=== PATIENT | male | born 1995 | race Caucasian/White ===

== ENCOUNTER 2018-05-20 21:04 | Inpatient (IN) | payer BC, OTHER ==
[~2018-05-20] VITALS: Ht 175.3 cm; Wt 61.7 kg
[~2018-05-20 21:04] MED LIST: MIRT15TA3
--- NOTE | 2018-05-20 21:11 | NUR ---
PT BIBSELF COMPLAINING OF LOWER ABDOMINAL PAIN, RADIATING TO RIGHT SIDE X1 DAY. PT ALSO C/O NAUSEA, DENIES VOMITTING, DIARRHEA, CHEST PAIN, SOB. PT AAOX4. RESPIRATIONS EVEN AND UNLABORED. VITAL SIGNS STABLE. NO ACUTE DISTRESS NOTED AT THIS TIME. PT AMBULATORY WITH STEADY GAIT TO ER BED 3. WILL CONTINUE TO MONITOR
[2018-05-20] MEDS ORDERED: IV NS 0.9% 1,000 ML BAG IV ONE (21:30)
--- NOTE | 2018-05-20 21:40 | NUR ---
SCENE PAINTER AT BEDSIDE FOR BLOOD DRAW
--- NOTE | 2018-05-20 21:40 | NUR ---
UNABLE TO PROVIDE URINE SAMPLE AT THIS TIME, MD LARSEN
[2018-05-20 21:44] LABS: BASOPHILS % (AUTO) 0.5 % (0.0-2.0); EOSINOPHILS % (AUTO) 1.9 % (0.0-6.0); HEMATOCRIT 45 % (39-51); HEMOGLOBIN 15.7 g/dL (13.5-17.5); LYMPHOCYTES # (AUTO) 1.8 /CMM (0.8-4.8); MEAN CORPUSCULAR HGB CONC 35 g/dl (31.0-36.0); MEAN CORPUSCULAR VOLUME 92 fL (80-96); MONOCYTES # (AUTO) 0.8 /CMM (0.1-1.30); MONOCYTES % (AUTO) 10.4 % (2.0-12.0); NEUTROPHILS % (AUTO) 64.2 % (43.0-81.0); PLATELET COUNT (AUTO) 217 /CMM (150-450); RED BLOOD CELL COUNT(AUTO) 4.95 MIL/uL (4.5-6.0); WHITE BLOOD COUNT (AUTO) 7.7 K/uL (4.3-11.0)
[2018-05-20] MEDS ORDERED: IV NS 0.9% 250 ML IV ONE (21:47)
[2018-05-20] MEDS ORDERED: IOHEXOL-300 100 ML VIAL IV ONE ×2 (21:47→22:28)
[2018-05-20 21:52] LABS: CALCIUM, SERUM 9.4 mg/dL (8.5-10.1); POTASSIUM 3.5 mmol/L (3.5-5.1)
[2018-05-20 22:03] LABS: ALBUMIN 4.1 g/dL (3.4-5.0); BILIRUBIN,DIRECT 0.1 mg/dL (0.0-0.2); BILIRUBIN,TOTAL 0.6 mg/dL (0.2-1.0); TOTAL PROTEIN, SERUM 7.6 g/dL (6.4-8.2)
--- NOTE | 2018-05-20 22:10 | NUR ---
RADIOLOGY AT BEDSIDE FOR CT
--- NOTE | 2018-05-20 22:48 | NUR ---
PT RETURNED FROM CT
--- NOTE | 2018-05-20 23:00 | NUR ---
URINE COLLECTED AND SENT TO LAB
[2018-05-20 23:52] LABS: APPEARANCE,URINE SL CLOUDY (CLEAR); BILIRUBIN,URINE NEGATIVE (NEGATIVE); BLOOD, URINE NEGATIVE Ery/uL (NEGATIVE); COLOR,URINE YELLOW (YELLOW); KETONES,URINE NEGATIVE (NEGATIVE); LEUKOCYTE ESTERASE ,URINE NEGATIVE (NEGATIVE); NITRITE, URINE NEGATIVE (NEGATIVE); PROTEIN,URINE NEGATIVE (NEGATIVE); UGLUCOSE NEGATIVE (NEGATIVE); UROBILINOGEN,URINE 0.2 EU/dL (0.2)
[2018-05-21] VITALS (11 sets, daily range): BP systolic 121–129; BP diastolic 60–98
[2018-05-21] MEDS ORDERED: PIPERACILLIN /TAZOBACTAM 3.375 G in IV D5W 50 ML IV ONE ×2
[2018-05-21] MEDS ORDERED: PIPERACILLIN /TAZOBACTAM 3.375 G VIAL IV ONE (00:22)
[2018-05-21] MEDS ORDERED: FLUO20CA36 PO (00:49)
[2018-05-21] MEDS ORDERED: MIRT30TA7 PO (00:49)
[2018-05-21] MEDS ORDERED: BUPR300T52 PO (00:49)
--- NOTE | 2018-05-21 01:00 | NUR ---
GAVE REPORT TO CARLITO FERREIRA FOR IVELISSE
--- NOTE | 2018-05-21 01:15 | NUR ---
PT TRANSFERRED TO CT BED 314-1 VIA [facility]
--- NOTE | 2018-05-21 01:25 | NUR ---
MS/RN NOTES RECEIVED PT. FROM ER VIA [facility]. PT. IS AWAKE, ALERT AND ORIENTED X4. BREATHING EVEN AND UNLABORED ON ROOM AIR. NO SOB, RESPIRATORY DISTRESS OR COMPLAINTS OF PAIN NOTED AT THIS TIME. NO COMPLAINTS OF NAUSEA, VOMITING OR ABDOMINAL PAIN NOTED AT THIS TIME. ORIENTED PT. TO ROOM. PT. WITH LEFT AC 18 GAUGE IV SALINE LOCK PRESENT, PATENT AND INTACT. BED LOCKED AND IN LOWEST POSITION, SIDE RAILS UP X2, CALL LIGHT WITHIN REACH, AWAITING ADMITTING ORDERS. WILL CONTINUE TO MONITOR.
[2018-05-21] MEDS ORDERED: ZOLPIDEM TARTRATE 5 MG TABLET PO PRN (02:30)
[2018-05-21] MEDS ORDERED: MORPHINE SULFATE INJ 2 MG/ML DISP.SYRIN IV PRN ×2 (02:30→19:30)
[2018-05-21] MEDS ORDERED: ACETAMINOPHEN 325 MG TABLET PO PRN (02:30)
[2018-05-21] MEDS: IV NS 0.9% 1,000 ML IV PRN (02:30)
[2018-05-21] MEDS ORDERED: ONDANSETRON HCL/PF 4 MG/2 ML VIAL IVP PRN (02:30)
[2018-05-21] MEDS ORDERED: Z GUARD REMEDY 2 OZ OINT TP PRN (02:30)
[2018-05-21] MEDS ORDERED: PIPERACILLIN /TAZOBACTAM 4.5 G in IV D5W 50 ML IV SCH (06:00)
--- NOTE | 2018-05-21 06:15 | NUR ---
MS/RN NOTES PT. IS LYING IN BED, AWAKE, ALERT AND ORIENTED X4. BREATHING EVEN AND UNLABORED ON ROOM AIR. NO SOB, RESPIRATORY DISTRESS OR COMPLAINTS OF PAIN NOTED AT THIS TIME. PT. WITH LEFT AC 18 GAUGE PERIPHERAL IV PRESENT, PATENT AND INTACT ADMINISTERING TO PT. NS @ 75 ML/HR. ALL PT. NEEDS MET. PT. REMAINS NPO AT THIS TIME. BED LOCKED AND IN LOWEST POSITION, SIDE RAILS UP X2, CALL LIGHT WITHIN REACH, WILL ENDORSE TO DAYSHIFT NURSE FOR CONTINUITY OF CARE.
--- NOTE | 2018-05-21 07:31 | NUR ---
RN NOTES PATIENT A/OX4, NO SOB NOTED, DENIES PAIN AT THIS TIME, PIV ON LAC G18 PATENT AND INFUSING WELL. NEEDS ATTENDED, CALL LIGHT WITHIN REACH, WILL CONTINUE TO MONITOR.
[2018-05-21] MEDS: PIPERACILLIN /TAZOBACTAM 3.375 G in IV D5W 100 ML IV SCH ×2 (09:08→16:45)
--- NOTE | 2018-05-21 13:00 | NUR ---
RN NOTES INFORMED DR. LANDIS PATIENT AND MOTHER WANTS TO SPEAK TO HIM PRIOR TO SURGERY. PER MD, HE WILL MEET THEM IN PRE-OP AREA. PATIENT AND MOTHER MADE AWARE.
[2018-05-21] MEDS ORDERED: LIDOCAINE HCL/PF 1% 30 ML SDV ONE (13:17)
[2018-05-21] MEDS ORDERED: ANESTHESIA TRAY IN PYXIS 1 EA TRAY MC ONE (13:17)
[2018-05-21] MEDS ORDERED: BUPIVACAINE MPF 0.5% W/EPI INJ 30 ML VIAL ONE (13:17)
[2018-05-21] MEDS ORDERED: HYDROMORPHONE INJ 2 MG/ML DISP.SYRIN IV PRN ×4 (13:30→20:00)
[2018-05-21] MEDS ORDERED: HYDROMORPHONE INJ 0.5 MG/0.5 ML SYRINGE IV PRN (13:30)
--- NOTE | 2018-05-21 13:35 | NUR ---
RN NOTES PATIENT TRANSFERRED TO OR IN STABLE CONDITION.
[2018-05-21] MEDS ORDERED: MIDAZOLAM HCL 2 MG/2ML VIAL ONE (14:11)
[2018-05-21] MEDS ORDERED: LANOLIN/MIN OIL/PETROLAT,WHT 3.5 GM TUBE ONE (14:22)
[2018-05-21] MEDS ORDERED: KETOROLAC TROMETHAMINE INJ 30 MG/ML VIAL ONE (15:48)
--- NOTE | 2018-05-21 16:00 | NUR ---
RN NOTES PATIENT CAME BACK FROM OR DEPT. PATIENT IN STABLE CONDITION. VSS. NAD. C/O PAIN 06/30. PATIENT'S MOM UPSET, ASKED TO SPEAK WITH NURSING CANDLE EXTRUSION MACHINE OPERATOR OR CRIMINOLOGY TEACHER. MOTHER EARLE ASSISTED TO NURSING CANDLE EXTRUSION MACHINE OPERATOR'S OFFICE, AND SPOKE WITH LARISSA AND TACOS ABRAMS FROM ADMITTING DEPT. NEEDS ATTENDED, CALL LIGHT WITHIN REACH, WILL CONTINUE TO MONITOR.
[2018-05-21] MEDS ORDERED: IV LR 1000 ML 1,000 ML IV PRN (17:30)
[2018-05-21] MEDS ORDERED: DULCOLAX 10 MG/SUPP.RECT RC PRN (17:30)
[2018-05-21] MEDS ORDERED: COLACE 250 MG CAPSULE PO PRN (17:30)
[2018-05-21] MEDS ORDERED: AMBIEN 5 MG TABLET PO PRN (17:30)
[2018-05-21] MEDS ORDERED: HYDROCODONE/APAP 5/325MG 1 EACH TABLET PO PRN (17:30)
--- NOTE | 2018-05-21 18:21 | NUR ---
RN NOTES PATIENT TOLERATED CLEAR LIQUIDS FOR DINNER. DENIES ABDOMINAL PAIN AND NAUSEA/VOMITING AT THIS TIME. PATIENT REQUESTED FOR MORE JELLOS AND JUICES. PATIENT'S ABDOMINAL INCISIONS WITH NO S/SX OF BLEEDING AT THIS TIME. INCENTIVE SPIROMETER GIVEN TO THE PATIENT AND INSTRUCTED ON HOW TO USE. IVF INFUSING AND TOLERATING WELL. ALL NEEDS ATTENDED AND MET, CALL LIGHT WITHIN REACH, WILL ENDORSE TO MARBLE MECHANIC HELPER FOR IVELISSE.
--- NOTE | 2018-05-21 19:10 | NUR ---
MS/RN NOTES RECEIVED PT. SITTING UP IN BED. PT. IS AWAKE, ALERT AND ORIENTED X4. BREATHING EVEN AND UNLABORED ON ROOM AIR. NO SOB, RESPIRATORY DISTRESS OR COMPLAINTS OF PAIN NOTED AT THIS TIME. NO COMPLAINTS OF NAUSEA, VOMITING OR ABDOMINAL PAIN NOTED AT THIS TIME. PT. WITH LEFT AC 18 GAUGE PERIPHERAL IV PRESENT, PATENT AND INTACT ADMINISTERING TO PT. LR @ 100 ML/HR. PT. IS STATUS POST LAP APPY TODAY WITH DR. LANDIS. PT. WITH 3 ABDOMINAL SURGICAL INCISIONS WITH NO BLEEDING OR DRAINAGE NOTED AT THIS TIME. BED LOCKED AND IN LOWEST POSITION, SIDE RAILS UP X2, CALL LIGHT WITHIN REACH, WILL CONTINUE TO MONITOR.
[2018-05-21] MEDS: POLYETHYLENE GLYCOL 3350 17 GM POWD.PACK PO SCH (20:30)
[2018-05-22] MEDS: PIPERACILLIN /TAZOBACTAM 3.375 G in IV D5W 100 ML IV SCH ×3 (00:42→16:48)
--- NOTE | 2018-05-22 06:22 | NUR ---
MS/RN NOTES PT. IS LYING IN BED RESTING. BREATHING EVEN AND UNLABORED ON ROOM AIR. NO SOB, RESPIRATORY DISTRESS OR COMPLAINTS OF PAIN NOTED AT THIS TIME. PT. WITH LEFT AC 18 GAUGE PERIPHERAL IV PRESENT, PATENT AND INTACT ADMINISTERING TO PT. LR @ 100 ML/HR. ALL PT. NEEDS MET. BED LOCKED AND IN LOWEST POSITION, SIDE RAILS UP X2, CALL LIGHT WITHIN REACH, WILL ENDORSE TO DAYSHIFT NURSE FOR CONTINUITY OF CARE.
[2018-05-22 07:11] LABS: BASOPHILS % (AUTO) 0.2 % (0.0-2.0); EOSINOPHILS % (AUTO) 0.5 % (0.0-6.0); HEMATOCRIT 38 % (39-51); HEMOGLOBIN 13.3 g/dL (13.5-17.5); LYMPHOCYTES # (AUTO) 1.7 /CMM (0.8-4.8); LYMPHOCYTES % (AUTO) 16.9 % (20.0-44.0); MEAN CORPUSCULAR HGB CONC 35 g/dl (31.0-36.0); MEAN CORPUSCULAR VOLUME 91 fL (80-96); MONOCYTES # (AUTO) 1.1 /CMM (0.1-1.30); MONOCYTES % (AUTO) 11.3 % (2.0-12.0); NEUTROPHILS % (AUTO) 71.1 % (43.0-81.0); PLATELET COUNT (AUTO) 187 /CMM (150-450); RED BLOOD CELL COUNT(AUTO) 4.16 MIL/uL (4.5-6.0); WHITE BLOOD COUNT (AUTO) 9.9 K/uL (4.3-11.0)
--- NOTE | 2018-05-22 07:33 | NUR ---
MS/RN - Assessment Patient is A/O X 4, denies pain at this time, no respiratory distress noted, POD#1 Lap Appy under the care of Dr. Jamison. Patient did well post-operatively. IVF NS at 75 ml/hr infusing well on the LAC with no signs of infiltration. Fall precautions maintained, able to ambulate with steady gait. All needs attended and met. Will continue with current medical management.
[2018-05-22] MEDS: IV NS 0.9% 1,000 ML IV PRN (07:40)
[2018-05-22 07:41] LABS: CALCIUM, SERUM 8.8 mg/dL (8.5-10.1); POTASSIUM 3.5 mmol/L (3.5-5.1)
[2018-05-22 07:42] LABS: ALBUMIN 3.4 g/dL (3.4-5.0); BILIRUBIN,TOTAL 1.1 mg/dL (0.2-1.0); MAGNESIUM 1.9 mg/dL (1.8-2.4); PHOSPHORUS 4.5 mg/dL (2.5-4.9); TOTAL PROTEIN, SERUM 6.3 g/dL (6.4-8.2)
[2018-05-22 08:00] VITALS: BP 110/60
[2018-05-22] MEDS: HYDROCODONE/APAP 10/325MG 1 EA TABLET PO PRN (13:04)
[2018-05-22] MEDS: DOCUSATE SODIUM 250 MG CAPSULE PO SCH (15:19)
[2018-05-22] MEDS: SIMETHICONE 80 MG TAB.CHEW PO SCH (15:20)
[2018-05-22] MEDS: TRAMADOL HCL 50 MG TABLET PO SCH ×2 (15:20→22:50)
[2018-05-22] MEDS: FAMOTIDINE (20 MG) 20 MG TABLET PO SCH ×2 (15:20→21:39)
[2018-05-22 16:00] VITALS: BP 115/61
--- NOTE | 2018-05-22 18:16 | NUR ---
MS/RN - Closing notes Patient tolerated regular diet well, denies abdominal pain, no c/o n/v, remain afebrile, stable on room air. Patient and mother updated on plan of care. Will continue with current medical management.
--- NOTE | 2018-05-22 19:10 | NUR ---
MS/RN OPENING NOTES PT RECEIVED AWAKE, HOB ELEVATED. MOTHER AT BEDSIDE. ON ROOM AIR, BREATHING EVEN AND UNLABORED. DENIES PAIN, SOB, N/V. 4 ABDOMINAL INCISIONS CLEAN AND DRY. MAMADOU. NO BLEEDING OR DISCHARGE NOTED. POSITIVE FLATUS BUT NO BM YET. IV TO LAC PATENT AND INTACT. BED IN LOW/LOCKED POSITION WITH CALL LIGHT IN REACH. BILATERAL UPPER SIDE RAILS IN PLACE. WILL CONTINUE TO MONITOR.
[2018-05-22] MEDS ORDERED: FLUO10CA26 PO (19:57)
[2018-05-22 20:00] VITALS: BP 112/58
--- NOTE | 2018-05-22 20:15 | NUR ---
MS/RN NOTES MOTHER UPSET, STATES PT HASNT BEEN RECEIVING HIS HOME MEDS. NOTIFIED DR. ALVAREZ, ASKED TO RECONCILE HOME MEDS. WITH ORDERS FOR REMERON 30MG PO HS START TONIGHT. WILL REVIEW THE OTHER HOME MEDS.
[2018-05-22] MEDS: MIRTAZAPINE 15 MG TABLET PO SCH (21:39)
[2018-05-22] MEDS: POLYETHYLENE GLYCOL 3350 17 GM POWD.PACK PO SCH (21:41)
--- NOTE | 2018-05-22 22:00 | NUR ---
MS/RN NOTES PT AMBULATED ONCE AROUND THE UNIT. TOLERATED WELL
[2018-05-23] MEDS: PIPERACILLIN /TAZOBACTAM 3.375 G in IV D5W 100 ML IV SCH ×2 (00:28→08:15)
--- NOTE | 2018-05-23 01:00 | NUR ---
MS/RN NOTES DR. ALVAREZ REMINDED ABOUT MED RECON
[2018-05-23] MEDS: TRAMADOL HCL 50 MG TABLET PO SCH ×3 (06:36→22:03)
--- NOTE | 2018-05-23 06:49 | NUR ---
MS/RN CLOSING NOTES PT AWAKE, RESTING COMFORTABLY IN BED. ON ROOM AIR, BREATHING EVEN AND UNLABORED. ABDOMINAL PAIN /, SCHEDULED ULTRAM ADMINISTERED ORDERED. DENIES SOB AND N/V AT THIS TIME. HOB ELEVATED. NO BM DURING SHIFT, + FLATUS. 4 SURGICAL INCISIONS MAMADOU, NO BLEEDING OR DRAINAGE NOTED. ENCOURAGED PT TO AMBULATE TOLERATED AND USE INCENTIVE SPIROMETER Q1H WHILE AWAKE. IV TO LAC PATENT AND INTACT. SLEPT WELL DURING SHIFT. ALL NEEDS MET. BED REMAINS IN LOW/LOCKED POSITION WITH CALL LIGHT IN REACH. BILATERAL UPPER SIDE RAILS IN PLACE. WILL ENDORSE TO DAY SHIFT RN IVELISSE.
[2018-05-23 07:08] LABS: BASOPHILS % (AUTO) 0.5 % (0.0-2.0); EOSINOPHILS % (AUTO) 5.6 % (0.0-6.0); HEMATOCRIT 41 % (39-51); HEMOGLOBIN 14.3 g/dL (13.5-17.5); LYMPHOCYTES # (AUTO) 2.3 /CMM (0.8-4.8); LYMPHOCYTES % (AUTO) 34.8 % (20.0-44.0); MEAN CORPUSCULAR HGB CONC 35 g/dl (31.0-36.0); MEAN CORPUSCULAR VOLUME 90 fL (80-96); MONOCYTES # (AUTO) 0.7 /CMM (0.1-1.30); MONOCYTES % (AUTO) 10.7 % (2.0-12.0); NEUTROPHILS # (AUTO) 3.1 /CMM (1.8-8.9); NEUTROPHILS % (AUTO) 48.4 % (43.0-81.0); PLATELET COUNT (AUTO) 214 /CMM (150-450); RED BLOOD CELL COUNT(AUTO) 4.53 MIL/uL (4.5-6.0); WHITE BLOOD COUNT (AUTO) 6.5 K/uL (4.3-11.0)
[2018-05-23 07:22] LABS: CALCIUM, SERUM 9.2 mg/dL (8.5-10.1); CREATININE 1.1 mg/dL (0.6-1.3); MAGNESIUM 2.3 mg/dL (1.8-2.4); PHOSPHORUS 4.2 mg/dL (2.5-4.9); POTASSIUM 3.8 mmol/L (3.5-5.1)
[2018-05-23] MEDS: SIMETHICONE 80 MG TAB.CHEW PO SCH ×2 (07:56→18:02)
[2018-05-23] MEDS: DOCUSATE SODIUM 250 MG CAPSULE PO SCH ×2 (07:57→18:02)
[2018-05-23] MEDS: FAMOTIDINE (20 MG) 20 MG TABLET PO SCH ×2 (07:57→20:55)
[2018-05-23 08:00] VITALS: BP 121/74
--- NOTE | 2018-05-23 08:00 | NUR ---
ms rn received on bed, awake,alert,oriented x4,not in any form of distress, respirations even and unlabored,no sob noted,lungs are clear,abdomen soft,positive bowel sounds, denies pain at this time,all needs attended.
--- NOTE | 2018-05-23 09:00 | NUR ---
ms henriquez breakfast served,due meds given,tolerated well.
--- NOTE | 2018-05-23 10:00 | NUR ---
ms rn was seen by pt, walks around, tolerated well.
[2018-05-23] MEDS: Fluoxetine 10 mg capsule PO SCH (12:29)
[2018-05-23] MEDS: BUPROPION XL 150 MG TAB.ER.24 PO SCH (12:29)
[2018-05-23] MEDS: CEPHALEXIN MONOHYDRATE 500 MG CAPSULE PO SCH ×2 (12:29→20:55)
--- NOTE | 2018-05-23 14:00 | NUR ---
ms rn mom at bedside, been giving prune juice but not effective.
[2018-05-23 16:00] VITALS: BP 122/70
--- NOTE | 2018-05-23 16:27 | NUR ---
ms rn on bed, no distress noted, denies pain at this time,all needs attended.
--- NOTE | 2018-05-23 19:08 | NUR ---
MS RN OPENING NOTES Received patient A/O X4, sitting on bed with visitor at bedside. Patient denies any discomfort at this time. With patent peripheral LAC G#18, AL. S/P laparoscopic appendectomy day 2. Encouraged to do ambulation as tolerated. Call light at bedside. Will continue to monitor accordingly.
[2018-05-23 20:00] VITALS: BP 107/65
--- NOTE | 2018-05-23 21:30 | NUR ---
MS RN NOTES Patient noted ambulating in the hallways 3 rounds, accompanied by mother. Patient tolerated walking well. Patient back to bed. Mother left at this time.
[2018-05-23] MEDS: MIRTAZAPINE 15 MG TABLET PO SCH (21:35)
[2018-05-23] MEDS: POLYETHYLENE GLYCOL 3350 17 GM POWD.PACK PO SCH (21:35)
[2018-05-23] MEDS ORDERED: Medication Not On Formulary EA (Mirtazapine 30 MG) PO SCH (22:00)
[2018-05-24] MEDS: TRAMADOL HCL 50 MG TABLET PO SCH ×2 (06:06→14:48)
--- NOTE | 2018-05-24 06:47 | NUR ---
MS RN CLOSING NOTES Patient asleep on semi-Tijerina's position on bed. With patent peripheral IV line LAC G#18, SL. Patient denies any discomfort. Able to ambulate around the hallway last night, tolerated well. All needs attended. Due meds given as ordered, no ASE noted. Kept clean, dry and comfortable. Call light within easy reach. Endorsed to the next shift for IVELISSE.
--- NOTE | 2018-05-24 07:15 | NUR ---
MS RN OPENING NOTES RECEIVED PATIENT AWAKE IN BED IN NO ACUTE SIGNS OF DISTRESS. A/O X4. ABLE TO VERBALIZED NEEDS WITH NO C/O PAIN OR DISCOMFORTS VOICED AT THIS TIME. 4 SURGICAL INCISIONS ON ABDOMEN INTACT WITH NO ACTIVE BLEEDING NOTED. ON ROOM AIR, BREATHING EVEN AND UNLABORED. HEPLOCK ON LAC INTACT AND PATENT. SAFETY MEASURES IN PLACE. BED IN LOW/LOCKED POSITION WITH SR UP X2. CALL LIGHT IN REACH. WILL CONTINUE TO MONITOR PT ACCORDINGLY.
[2018-05-24 08:00] VITALS: BP 113/70
[2018-05-24] MEDS: DOCUSATE SODIUM 250 MG CAPSULE PO SCH (08:25)
[2018-05-24] MEDS: CEPHALEXIN MONOHYDRATE 500 MG CAPSULE PO SCH (08:25)
[2018-05-24] MEDS: FAMOTIDINE (20 MG) 20 MG TABLET PO SCH (08:25)
[2018-05-24] MEDS: SIMETHICONE 80 MG TAB.CHEW PO SCH (08:25)
[2018-05-24] MEDS: BUPROPION XL 150 MG TAB.ER.24 PO SCH (08:25)
[2018-05-24] MEDS: HYDROCODONE/APAP 10/325MG 1 EA TABLET PO PRN (08:28)
[2018-05-24] MEDS: Fluoxetine 10 mg capsule PO SCH (08:30)
--- NOTE | 2018-05-24 08:38 | NUR ---
RN NOTES/PAIN MANAGEMENT PATIENT C/O SHARP PAIN ON HIS RIGHT SHOULDER WITH SCALE OF 10/10, PRN NORCO 10/325 PO GIVEN @ 0828. WILL CONTINUE TO MONITOR AND ASSESS PT.
[2018-05-24 16:00] VITALS: BP 110/71
--- NOTE | 2018-05-24 17:25 | NUR ---
COMMUNITY LIAISON OFFICER NOTES PT DISCHARGED HOME IN STABLE CONDITION. A/O X4. AMBULATORY AND VERBALLY RESPONSIVE. ALL NEEDS AND CARE ATTENDED WELL. V/S TAKEN AND FRECORDED. 4 SURGICAL INCISIONS ON HIS ABDOMEN INTACT, PHOTO TAKEN THEN FILED ON CHART. PIV REMOVED WITH NO BLEEDING NOTED. NAME ARM BAND REMOVED. HEALT TEACHINGS GIVEN AND VERBALIZED UNDERSTANDING. PT LEFT UNIT AT 1655 VIA WHEELCHAIR ACCOMPANIED BY TANK CAR LOADER AND PT'S HIS MOTHER. MD AND CHARGE NURSE AWRE OF DISCHARGE.
== END 2018-05-24 17:00 | disposition home or self-care (01) | DRG 342 ==
LOC: ER 21:08 → MED 05-21 01:06
PROVIDERS: ADMIT Internal Medicine; ATTEND Internal Medicine
PROC: 0DTJ4ZZ Resection of Appendix, Percutaneous Endoscopic Approach (ICD-10-PCS; principal; 2018-05-21)
DX: K35.80 Unspecified acute appendicitis (principal); K56.7 Ileus, unspecified; F32.9 Major depressive disorder, single episode, unspecified; F41.9 Anxiety disorder, unspecified
CPT/HCPCS: 36415; 80048-TC; 80053-TC; 80061-TC; 80076-TC; 81000-TC; 83690-TC; 83735-TC; 84100-TC; 85025-TC; 86850-TC; 87081-TC; 87086-TC; 88304-TC; G0378; J1170; J1885; J2250; J2405; J2543; J2704; J2710; J3490; J7030; J7050; J7060; J7120; Q9967

== ENCOUNTER 2021-11-20 08:03 | Inpatient (IN) | payer BC ==
[~2021-11-20] VITALS: Ht 182.9 cm; Wt 59.9 kg
[~2021-11-20 08:03] MED LIST changes: +BUPR300T52 PO; +FLUO10CA26 PO; +MIRT-91 PO; -MIRT15TA3
--- NOTE | 2021-11-20 08:24 | NUR ---
BIBS FOR C/O PRESSURE LIKE CP RADIATING TO BACK AND JAW SINCE 644. RATES PAINS 3/10. ALSO, C/O N/V. TOOK IBUPROFEN 2 COLLECTIONS REP. THE PATIENT IS ALERT AND ORIENTED X4. IN ROOM AIR AND DENIES SOB. RESPIRATION REGULAR AND UNLABORED. THE PATIENT IS ATTACHED TO THE MONITOR. WILL CONTINUE TO MONITOR THE PATIENT.
--- NOTE | 2021-11-20 08:43 | NUR ---
IV LINE IS ESTABLISHED, BLOOD SPECIMEN COLLECTED AND SENT TO THE LAB. THE LINE IS SALINE LOCKED.
[2021-11-20 08:56] LABS: BASOPHILS % (AUTO) 0.1 % (0.0-2.0); EOSINOPHILS % (AUTO) 0.6 % (0.0-6.0); HEMATOCRIT 43 % (39-51); HEMOGLOBIN 14.8 g/dL (13.5-17.5); LYMPHOCYTES # (AUTO) 0.7 K/uL (0.8-4.8); LYMPHOCYTES % (AUTO) 7.5 % (20.0-44.0); MEAN CORPUSCULAR HGB CONC 34 g/dl (31.0-36.0); MEAN CORPUSCULAR VOLUME 91 fL (80-96); MONOCYTES # (AUTO) 1.1 K/uL (0.1-1.30); MONOCYTES % (AUTO) 12.7 % (2.0-12.0); NEUTROPHILS % (AUTO) 79.1 % (43.0-81.0); PLATELET COUNT (AUTO) 146 K/uL (150-450); RED BLOOD CELL COUNT(AUTO) 4.74 MIL/uL (4.5-6.0); WHITE BLOOD COUNT (AUTO) 8.8 K/uL (4.3-11.0)
[2021-11-20] MEDS ORDERED: ONDANSETRON 4 MG TAB.RAPDIS SL ONE (09:00)
[2021-11-20] MEDS ORDERED: ONDANSETRON 4 MG TAB.RAPDIS ONE (09:01)
--- NOTE | 2021-11-20 09:52 | NUR ---
LAB CALLED [facility] [phone] DR. ASHISH SALINAS.
--- NOTE | 2021-11-20 09:54 | NUR ---
COVID SWAB DONE SENT TO LAB
[2021-11-20 09:57] LABS: CALCIUM, SERUM 8.6 mg/dL (8.5-10.1); CARBON DIOXIDE 29 mmol/L (21-32); CHLORIDE 102 mmol/L (98-107); GLUCOSE 107 mg/dL (74-106); POTASSIUM 3.9 mmol/L (3.5-5.1); SODIUM SERUM 138 mmol/L (136-145); UREA NITROGEN, BLOOD 10 mg/dL (7-18)
[2021-11-20] MEDS ORDERED: ENOXAPARIN SODIUM 60 MG/0.6 ML DISP.SYRIN SQ ONE ×2 (10:00→10:05)
[2021-11-20] MEDS ORDERED: METOPROLOL TARTRATE INJ 5 MG/5 ML AMPUL IV ONE (10:00)
[2021-11-20] MEDS ORDERED: ASPIRIN 325 MG TABLET PO ONE (10:00)
[2021-11-20] MEDS ORDERED: ASPIRIN 325 MG TABLET ONE (10:05)
[2021-11-20] MEDS ORDERED: METOPROLOL TARTRATE INJ 5 MG/5 ML AMPUL ONE (10:05)
--- NOTE | 2021-11-20 10:05 | NUR ---
THE PATIENT IS TAKEN TO CT [facility]IA [facility]
--- NOTE | 2021-11-20 10:12 | NUR ---
THE PATIENT IS BACK FROM CT VIA [facility]
--- NOTE | 2021-11-20 10:28 | NUR ---
PT SEEN BY DR. RUIZ AT BEDSIDE
[2021-11-20] MEDS: ASPIRIN 81 MG TAB.CHEW PO SCH (10:30)
--- NOTE | 2021-11-20 11:04 | NUR ---
[facility] CALLED BUILDING SERVICES COORDINATOR PAGED.
[2021-11-20 11:12] LABS: THYROID STIMULATING HORMONE 0.178 uIU/mL (0.358-3.74)
--- NOTE | 2021-11-20 11:15 | NUR ---
RECEIVED ORDERS FROM DR JAQUEZ: MORPHINE 2 MG IV ONCE AND NITROSTAT 0.4 MG SL Q5 MIN X3 PRN. THE ORDERS ARE READ BACK, VERIFIED. NOTED AND CARRIED OUT.
[2021-11-20] MEDS ORDERED: NITROGLYCERIN 0.4 MG/TAB BOTTLE SL PRN (11:30)
[2021-11-20] MEDS ORDERED: MORPHINE SULFATE INJ 2 MG/ML DISP.SYRIN ONE ×2 (11:43→17:25)
[2021-11-20] MEDS ORDERED: NITROGLYCERIN 0.4 MG/TAB BOTTLE ONE (11:43)
[2021-11-20] MEDS: MORPHINE SULFATE INJ 2 MG/ML DISP.SYRIN IV PRN ×2 (11:49→21:38)
--- NOTE | 2021-11-20 12:35 | NUR ---
SECOND TROPONIN IS TROPONIN 4271. NO NEW ORDER PER DR JAQUEZ.
--- NOTE | 2021-11-20 12:41 | NUR ---
US TECH AT THE BEDSIDE
[2021-11-20] MEDS ORDERED: ASPIRIN 81 MG TAB.CHEW ONE (14:24)
[2021-11-20] MEDS ORDERED: ZOLPIDEM TARTRATE 5 MG TABLET PO PRN (14:30)
[2021-11-20] MEDS ORDERED: MAGNESIUM HYDROXIDE 30 ML UDC PO PRN (14:30)
[2021-11-20] MEDS ORDERED: Z GUARD REMEDY 4 OZ OINT TP PRN (14:30)
[2021-11-20] MEDS ORDERED: MAG HYDROX/AL HYDROX/SIMETH 30 ML UDC PO PRN (14:30)
[2021-11-20] MEDS ORDERED: ONDANSETRON HCL/PF 4 MG/2 ML VIAL IVP PRN (14:30)
[2021-11-20] MEDS ORDERED: ACETAMINOPHEN 325 MG TABLET PO PRN (14:30)
[2021-11-20] MEDS ORDERED: MORPHINE SULFATE INJ 2 MG/ML DISP.SYRIN IV PRN (14:30)
--- NOTE | 2021-11-20 15:51 | NUR ---
KAILEY RODRIGUEZ (MOTHER) [phone]
--- NOTE | 2021-11-20 17:06 | NUR ---
ROOM 111-1
--- NOTE | 2021-11-20 17:30 | NUR ---
REPORT GIVEN TO NURSE SANCHEZ FOR IVELISSE
[2021-11-20] MEDS ORDERED: METOPROLOL TARTRATE 25 MG TABLET ONE (17:52)
[2021-11-20] MEDS: METOPROLOL TARTRATE 25 MG TABLET PO SCH (17:59)
[2021-11-20 18:30] VITALS: BP 129/76
--- NOTE | 2021-11-20 18:38 | NUR ---
THE PATIENT IS TRANSFERED TO ROOM 111-1 IN STABLE CONDITION AND PER ACLS POLICY.
[2021-11-20 20:00] VITALS: BP 114/70
--- NOTE | 2021-11-20 20:57 | NUR ---
Metallurgical Technician Opening Note Pt received in bed, awake, watching TV, A&O x4, calm, cooperative. Pt on RA with current O2sat 99%; pt shows no s/s of resp distress, no SOB or cough, non-labored and equal breathing. Pt attached to external monitor SR with HR of 69; pt denies any chest pain at the moment but is complaining of jaw pain; will closely monitor for compalints of chest pain. IV access on LAC 20G, intact and patent; flushes easily with no resistance; currently has no meds/fluids running. Bed in lowest position, call light within reach, side rails up x2. Will continue to monitor throughout the night.
[2021-11-20] MEDS: ENOXAPARIN SODIUM 60 MG/0.6 ML DISP.SYRIN SQ SCH (21:25)
--- NOTE | 2021-11-20 21:38 | NUR ---
RN Note Pt complains of 8/10 jaw pain that's described as aching and throbbing. Pt requests for morphine. Pt administered morphine 2 mg. Will monitor for effectiveness.
[2021-11-21] VITALS (11 sets, daily range): BP systolic 84–113; BP diastolic 36–75
[2021-11-21] MEDS: METOPROLOL TARTRATE 25 MG TABLET PO SCH ×5 (00:53→23:28)
--- NOTE | 2021-11-21 06:06 | NUR ---
HL7 INTERFACE DEVELOPER CLOSING NOTE PT REMAINS IN BED, AWAKE, USING PHONE, A&O X4, SLEPT WELL LAST NIGHT. PT REMAINS ON RA WITH O2SAT RANGING FROM 96%-98%; NO S/S OF RESP DISTRESS, NON-LABORED AND EQUAL BREATHING, NO SOB OR COUGH. ATTACHED TO EXTERNAL MONITOR SR THROUGHOUT THE WHOLE NIGHT, HR RANGING FROM 69-90; PT HAD NO COMPLAINT OF CHEST PAIN DURING THE NIGHT AND REPORTS JAW PAIN DECREASED WHEN GIVEN MORPHINE. LAC 20G INTACT AND PATENT, FLUSHES EASILY WITH NO RESISTANCE; HAS NO FLUIDS/MEDS RUNNING THROUGH IT. BED IN LOWEST POSITION, CALL LIGHT WITHIN REACH, SIDE RAILS UP X2. WILL ENDORSE TO DAYSHIFT NURSE TO CONTINUE CARE.
[2021-11-21 06:28] LABS: BASOPHILS % (AUTO) 0.9 % (0.0-2.0); EOSINOPHILS % (AUTO) 1.7 % (0.0-6.0); HEMATOCRIT 43 % (39-51); HEMOGLOBIN 14.9 g/dL (13.5-17.5); LYMPHOCYTES # (AUTO) 1.1 K/uL (0.8-4.8); LYMPHOCYTES % (AUTO) 21.4 % (20.0-44.0); MEAN CORPUSCULAR HGB CONC 35 g/dl (31.0-36.0); MEAN CORPUSCULAR VOLUME 90 fL (80-96); MONOCYTES # (AUTO) 0.9 K/uL (0.1-1.30); MONOCYTES % (AUTO) 18.1 % (2.0-12.0); NEUTROPHILS # (AUTO) 2.9 K/uL (1.8-8.9); NEUTROPHILS % (AUTO) 57.9 % (43.0-81.0); PLATELET COUNT (AUTO) 146 K/uL (150-450); RED BLOOD CELL COUNT(AUTO) 4.75 MIL/uL (4.5-6.0)
[2021-11-21 07:17] LABS: ALBUMIN 3.5 g/dL (3.4-5.0); BILIRUBIN,TOTAL 0.7 mg/dL (0.2-1.0); CALCIUM, SERUM 8.3 mg/dL (8.5-10.1); MAGNESIUM 2.2 mg/dL (1.8-2.4); PHOSPHORUS 4.3 mg/dL (2.5-4.9); TOTAL PROTEIN, SERUM 6.6 g/dL (6.4-8.2)
--- NOTE | 2021-11-21 07:21 | NUR ---
RN OPENING NOTE PT IN BED, AWAKE, A&O X4, ON ROOPM NO S/S OF RESP DISTRESS, NON-LABORED AND EQUAL BREATHING, NO SOB OR COUGH. ATTACHED TO BLUEPRINT PROCESSOR PT DOES NOT COMPLAINT OF CHEST PAIN. LAC 20G INTACT AND PATENT, SAFETY MEASURES IN PLACE BED IN LOWEST POSITION, CALL LIGHT WITHIN REACH, SIDE RAILS UP X2.
[2021-11-21] MEDS ORDERED: IOHEXOL-350 100 ML VIAL IV ONE (08:39)
[2021-11-21] MEDS ORDERED: IV NS 0.9% 250 ML IV ONE (08:39)
[2021-11-21] MEDS ORDERED: METOPROLOL TARTRATE INJ 5 MG/5 ML AMPUL ONE (08:49)
--- NOTE | 2021-11-21 08:50 | NUR ---
ICU/RN/CTA PT IS AWAKE ALERT.ON CT TABLE.BP 102/52. HR-74.RR-18.SAT O2-99% ON ROOM AIR.NO PAIN REPORTED AT THIS TIME. RIGHT AC #20.METOPROLOL 5 MG IV GIVEN ORDERED.
--- NOTE | 2021-11-21 08:55 | NUR ---
ICU/RN/CTA BP DECREASED TO 87/45.HR -71 BPM. NO MORE MEDS ARE GIVEN .
--- NOTE | 2021-11-21 09:10 | NUR ---
ICU/RN/CTA CTA DONE . BP 99/58.HR-78 BPM.SAT O2-96% ON ROOM AIR.PT IS STABLE .NO PAIN REPORTED AT THIS TIME.OK TO TRANSFER BACK TO THE ROOM.REPORT GIVEN TO BRIDGETTE/HANNA
[2021-11-21] MEDS: ASPIRIN 81 MG TAB.CHEW PO SCH (09:29)
[2021-11-21] MEDS: ENOXAPARIN SODIUM 60 MG/0.6 ML DISP.SYRIN SQ SCH ×2 (09:54→20:54)
[2021-11-21 11:16] LABS: BAND % (MANUAL) 1 % (0.0-5.0); EOSINOPHILS % (MANUAL) 4 % (0-4); LYMPHOCYTES % (MANUAL) 20 % (16-48); MONOCYTES % (MANUAL) 23 % (0-11.0); NEUTROPHILS % (MANUAL) 52 (42-76)
--- NOTE | 2021-11-21 18:42 | NUR ---
DIRECTOR OF COMMUNITY CENTER CLOSING NOTE PT REMAINS IN BED, AWAKE, USING PHONE, A&O X4, SLEPT WELL LAST NIGHT. PT REMAINS ON RA WITH O2SAT RANGING FROM 96%-98%; NO S/S OF RESP DISTRESS, NON-LABORED AND EQUAL BREATHING, NO SOB OR COUGH. ATTACHED TO EXTERNAL MONITOR PT HAD NO COMPLAINT OF CHEST PAIN . LAC 20G INTACT AND PATENT, FLUSHES EASILY WITH NO RESISTANCE. BED IN LOWEST POSITION, CALL LIGHT WITHIN REACH, SIDE RAILS UP X2. WILL ENDORSE TO NIGHT NURSE TO CONTINUE CARE.
--- NOTE | 2021-11-21 19:50 | NUR ---
RN OPENING NOTE PT IN BED, AWAKE, A&O X4, ON ROOM AIR, NON-LABORED AND EQUAL BREATHING, NO SOB OR COUGH. ATTACHED TO FARM MACHINERY MECHANIC. NO PAIN NOTED AT THIS TIME, NO S/SX OF RESPIRATORY DISTRESS NOTED, PT FAMILY ON BEDSIDE. LAC 20G INTACT AND PATENT, SAFETY MEASURES IN PLACE, BED IN LOWEST POSITION, CALL LIGHT WITHIN REACH, SIDE RAILS UP X2. WILL CONTINUE TO MONITOR THROUGHOUT THE SHIFT.
--- NOTE | 2021-11-22 00:39 | NUR ---
RN NOTE PT NOTED WITH FEVER AT 100, TYLENOL GIVEN PRN MEDS AND COOLING MEASURES DONE. WILL CONT TO MONITOR.
--- NOTE | 2021-11-22 01:50 | NUR ---
RN NOTE TRANSFERRED PT TO [address] [place] [address] VIA HOSPITAL BED, ACLS PROTOCOL FOLLOWED DURING TRANSFER. REPORT GIVEN TO ROXANA FERREIRA.
--- NOTE | 2021-11-22 02:36 | NUR ---
WATER PUMP SERVICERACADEMIC COUNSELOR NOTES: RECEIVED PATIENT FROM [facility] ON STABLE CONDITION, PLACED IN BED COMFORTABLY, BED IN COMFORTABLY, PATIENT IS A/OX4 ABLE TO MAKE NEEDS KNOWN, AMBULATORY ON TELE MONITORING SR-76, V/S ARE WITHIN NORMAL RANGE, ORIENTED TO ROOM REMIND TO USE THE CALL LIGHTS WHEN NEEDED ASSISTANCE, SKIN IS INTACT, INVENTORY DONE, PATIENT KEPT CLEAN AND DRY ALL NEEDS MET WILL CONTINUE TO MONITRO.
[2021-11-22] MEDS: METOPROLOL TARTRATE 25 MG TABLET PO SCH (06:00)
--- NOTE | 2021-11-22 07:30 | NUR ---
RN OPENING NOTE PT IN BED, ASLEEP, AWAKENS EASILY. A&O X 4, ON ROOM AIR, NO SOB OR COUGH. ATTACHED TO CARBON BRUSHER ASSEMBLER. DENIES PAIN AT THIS TIME, NO S/SX OF RESPIRATORY DISTRESS NOTED, PT FAMILY ON BEDSIDE. LAC 20G INTACT AND PATENT, SAFETY MEASURES IN PLACE, BED IN LOWEST POSITION, CALL LIGHT WITHIN REACH, SIDE RAILS UP X2. WILL CONTINUE TO MONITOR THROUGHOUT THE SHIFT. ASSIST PRN
--- NOTE | 2021-11-22 07:32 | NUR ---
FEE CLERK CLOSING NOTES: PATIENT SLEEP IN BED COMFORTABLY, BED IN LOW POSITION CALL LIGHTS WITHIN REACH, NO COMPLAIN OF PAIN AND DISCOMFORT AT THIS TIME, ON ROOM AIR SATURATING WELL, PATIENT ON TELE MONITOR- ON ROOM AIR SATURATING WELL, AMBULATORY WITH SUPERVISION, PATIENT KEPT CLEAN AND DRY ALL NEEDS MET ENDORSE TO INCOMING SH
[2021-11-22] MEDS: ASPIRIN 81 MG TAB.CHEW PO SCH (08:38)
[2021-11-22 09:30] VITALS: BP 98/55
[2021-11-22] MEDS ORDERED: NIFEdipine XL (30MG) 30 MG TAB PO SCH (09:30)
[2021-11-22] MEDS ORDERED: NIFE-35 PO (09:35)
[2021-11-22] MEDS ORDERED: ASPI-1169 PO (09:35)
--- NOTE | 2021-11-22 12:35 | NUR ---
GENERAL ACCOUNTANT NOTE- PT DC AT THIS TIME INTO CARE OF FAMILY. DC INSTRUCTIONS READ AND UNDERSTOOD. IV SITE DC'D AND ID WRISTBAND REMOVED. ESCORTED OFF UNIT BY THIS RN
== END 2021-11-22 12:45 | disposition home or self-care (01) | DRG 282 ==
LOC: ER 08:05 → TRANSITION 13:58 → TELE1 17:17 → TELE 11-22 01:47 → MED 11-22 10:52
PROVIDERS: ADMIT Internal Medicine; ATTEND Internal Medicine
DX: I21.4 Non-ST elevation (NSTEMI) myocardial infarction (principal); Z20.822 Contact with and (suspected) exposure to COVID-19; F41.9 Anxiety disorder, unspecified; Z86.19 Personal history of other infectious and parasitic diseases; Z79.899 Other long term (current) drug therapy; F17.200 Nicotine dependence, unspecified, uncomplicated; F32.9 Major depressive disorder, single episode, unspecified
CPT/HCPCS: 36415; 70450-TC; 71045-TC; 75574; 80048-TC; 80053-TC; 83735-TC; 84100-TC; 84439-TC; 84443-TC; 84484-TC; 85025-TC; 87081-TC; 93307-TC; C9803; G0378; J1650; J2270; J3490; J7050; Q0162; Q9967

== ENCOUNTER 2021-12-02 02:48 | Emergency (ER) | payer BC ==
[~2021-12-02] VITALS: Ht 182.9 cm; Wt 59.0 kg
[~2021-12-02 02:48] MED LIST changes: +ASPI-1169 PO; +NIFE-35 PO
[2021-12-02 03:19] VITALS: BP 120/76
--- NOTE | 2021-12-02 03:20 | NUR ---
BIBS C/O SORE THROAT X4DAYS, TAKING PENICILLIN, TYLENOL, AND MOTRIN. PATIENT ALERT AND ORIENTEDX3. AMBULATORY WITH NON LABORED BREATHING IN BED 06 AWAITING MD RADER.
[2021-12-02] MEDS ORDERED: PRED50TA PO (03:26)
[2021-12-02] MEDS ORDERED: DEXAMETHASONE SOD PHOSPHATE 10 MG/ML VIAL ONE (03:26)
[2021-12-02] MEDS ORDERED: ONDANSETRON 4 MG TAB.RAPDIS ONE (03:28)
[2021-12-02] MEDS ORDERED: DEXAMETHASONE SOD PHOSPHATE 4 MG/ML VIAL IM ONE (03:30)
[2021-12-02] MEDS ORDERED: ONDANSETRON 4 MG TAB.RAPDIS SL ONE (03:30)
--- NOTE | 2021-12-02 03:30 | NUR ---
Patient discharged to home in stable condition. Written and verbal after care instructions given. Patient verbalizes understanding of instruction.
== END 2021-12-02 03:30 | disposition home or self-care (01) ==
LOC: ER 02:58
DX: J02.9 Acute pharyngitis, unspecified (principal); Z79.899 Other long term (current) drug therapy; Z79.82 Long term (current) use of aspirin
CPT/HCPCS: 99283; 96372; J1100; Q0162

== ENCOUNTER 2021-12-08 22:38 | Emergency (ER) | payer BC ==
[~2021-12-08] VITALS: Ht 182.9 cm; Wt 56.7 kg
[~2021-12-08 22:38] MED LIST changes: +PRED50TA PO
--- NOTE | 2021-12-08 22:56 | NUR ---
MYRA PEDRO AT BEDSIDE FOR EKG
--- NOTE | 2021-12-08 23:00 | NUR ---
DR. SHARLENE CANO AT PT'S BEDSIDE
--- NOTE | 2021-12-08 23:00 | NUR ---
BIBS FROM HOME TO ER BED 3. AAOX4. NOT IN RESP DISTRESS, BREATHING EVEN AND UNLABORED. AMBULATORY. CAME IN FOR A MID STERNAL CHEST PAIN RADIATING TO LEFT NECK. PER PT, FIRST EPISODE STARTED AT 1500 AND THE LAST EPIOSDE STARTED 1 HR MEDICAL EQUIPMENT REPAIR TECHNICIAN. 1/10 TIGHTNESS. EKG DONE AT BEDSIDE.
--- NOTE | 2021-12-08 23:09 | NUR ---
IV LINE ESTABLISHED , RAC18G. BLOOD COLLECTED AND SENT TO LAB
--- NOTE | 2021-12-08 23:10 | NUR ---
MEDICAL INSURANCE CLAIMS SPECIALIST AT PT'S BEDSIDE
[2021-12-08 23:31] LABS: BASOPHILS % (AUTO) 0.5 % (0.0-2.0); EOSINOPHILS % (AUTO) 0.4 % (0.0-6.0); HEMATOCRIT 38 % (39-51); HEMOGLOBIN 13.4 g/dL (13.5-17.5); LYMPHOCYTES # (AUTO) 3.1 K/uL (0.8-4.8); LYMPHOCYTES % (AUTO) 50.7 % (20.0-44.0); MEAN CORPUSCULAR HGB CONC 35 g/dl (31.0-36.0); MEAN CORPUSCULAR VOLUME 89 fL (80-96); MONOCYTES # (AUTO) 0.9 K/uL (0.1-1.30); MONOCYTES % (AUTO) 15.3 % (2.0-12.0); NEUTROPHILS % (AUTO) 33.1 % (43.0-81.0); PLATELET COUNT (AUTO) 284 K/uL (150-450); RED BLOOD CELL COUNT(AUTO) 4.31 MIL/uL (4.5-6.0); WHITE BLOOD COUNT (AUTO) 6.2 K/uL (4.3-11.0)
[2021-12-08 23:42] LABS: CALCIUM, SERUM 8.3 mg/dL (8.5-10.1); CARBON DIOXIDE 29 mmol/L (21-32); CHLORIDE 103 mmol/L (98-107); CREATININE 0.8 mg/dL (0.6-1.3); GLUCOSE 111 mg/dL (74-106); POTASSIUM 3.9 mmol/L (3.5-5.1); SODIUM SERUM 137 mmol/L (136-145); UREA NITROGEN, BLOOD 19 mg/dL (7-18)
[2021-12-08 23:44] LABS: ALANINE AMINOTRANSFERASE 100 U/L (12-78); ALBUMIN 3.4 g/dL (3.4-5.0); ALKALINE PHOSPHATASE 94 U/L (46-116); ASPARTATE AMINOTRANSFERASE 18 U/L (15-37); BILIRUBIN,DIRECT 0.1 mg/dL (0.0-0.2); BILIRUBIN,TOTAL 0.3 mg/dL (0.2-1.0); TOTAL PROTEIN, SERUM 7.3 g/dL (6.4-8.2)
[2021-12-09 00:06] LABS: BASOPHILS % (MANUAL) 0 % (0.0-2.0); EOSINOPHILS % (MANUAL) 0 % (0-4); LYMPHOCYTES % (MANUAL) 56 % (16-48); MONOCYTES % (MANUAL) 16 % (0-11.0); NEUTROPHILS % (MANUAL) 28 (42-76)
--- NOTE | 2021-12-09 01:08 | NUR ---
LAB AT BEDSIDE
[2021-12-09 01:45] VITALS: BP 131/70
--- NOTE | 2021-12-09 01:52 | NUR ---
Patient discharged to home in stable condition. Written and verbal after care instructions given. Patient verbalizes understanding of instruction.
--- NOTE | 2021-12-09 01:52 | NUR ---
IV removed. Catheter intact and site benign. Pressure and 4x4 applied to site. No bleeding noted.
== END 2021-12-09 03:18 | disposition home or self-care (01) ==
LOC: ER 22:39
DX: R07.89 Other chest pain (principal); Z79.899 Other long term (current) drug therapy; Z79.82 Long term (current) use of aspirin
CPT/HCPCS: 36415; 71045-TC; 80048-TC; 80076-TC; 84484-TC; 85025-TC

== ENCOUNTER 2022-01-17 01:20 | Emergency (ER) | payer BC ==
[~2022-01-17] VITALS: Ht 182.9 cm; Wt 59.0 kg
--- NOTE | 2022-01-17 01:30 | NUR ---
BIBS FOR C/O L SIDED CP RADIATING TO THE BACK X 1 HOUR. +NAUSEA. PT A/OX4. TOLERATING R/A WELL WITH NO SOB. CONNECTED PT TO POX AND MONITOR. SAFETY MEASURES IN PLACE
[2022-01-17 01:55] LABS: BASOPHILS # (AUTO) 0.1 K/uL (0.0-0.2); BASOPHILS % (AUTO) 0.9 % (0.0-2.0); EOSINOPHILS % (AUTO) 1.6 % (0.0-6.0); HEMATOCRIT 42 % (39-51); HEMOGLOBIN 14.4 g/dL (13.5-17.5); LYMPHOCYTES # (AUTO) 2.2 K/uL (0.8-4.8); LYMPHOCYTES % (AUTO) 35.6 % (20.0-44.0); MEAN CORPUSCULAR HGB CONC 34 g/dl (31.0-36.0); MEAN CORPUSCULAR VOLUME 90 fL (80-96); MONOCYTES # (AUTO) 0.7 K/uL (0.1-1.30); MONOCYTES % (AUTO) 11.9 % (2.0-12.0); NEUTROPHILS # (AUTO) 3.1 K/uL (1.8-8.9); PLATELET COUNT (AUTO) 211 K/uL (150-450); RED BLOOD CELL COUNT(AUTO) 4.68 MIL/uL (4.5-6.0); WHITE BLOOD COUNT (AUTO) 6.2 K/uL (4.3-11.0)
[2022-01-17 02:07] LABS: CALCIUM, SERUM 8.7 mg/dL (8.5-10.1); CARBON DIOXIDE 31 mmol/L (21-32); CHLORIDE 103 mmol/L (98-107); GLUCOSE 85 mg/dL (74-106); POTASSIUM 3.6 mmol/L (3.5-5.1); SODIUM SERUM 140 mmol/L (136-145); UREA NITROGEN, BLOOD 17 mg/dL (7-18)
--- NOTE | 2022-01-17 05:03 | NUR ---
Patient discharged to home in stable condition. Written and verbal after care instructions given. Patient verbalizes understanding of instruction.
[2022-01-17 05:04] VITALS: BP 126/88
== END 2022-01-17 05:57 | disposition home or self-care (01) ==
LOC: ER 01:21
DX: R07.89 Other chest pain (principal); I25.2 Old myocardial infarction; Z79.899 Other long term (current) drug therapy; Z79.82 Long term (current) use of aspirin
CPT/HCPCS: 36415; 71045-TC; 80048-TC; 84484-TC; 85025-TC